=== PATIENT | male | born 1950 ===

== ENCOUNTER 2017-12-18 08:53 | Emergency (ER) | payer MEDICARE ==
[2017-12-18 09:06] VITALS: PULSE 54; O2SAT 98
--- NOTE | 2017-12-18 10:25 | RAD ---
PROCEDURE: Radiographs of the Right Shoulder HISTORY: r/o fx COMPARISON: No prior. FINDINGS: BONES: No fracture JOINTS: Acromioclavicular and glenohumeral joint arthrosis SOFT TISSUES: Normal. OTHER FINDINGS: Partially visualized are midline sternotomy wires IMPRESSION: No fracture or dislocation. Moderate shoulder arthrosis
[2017-12-18 11:02] VITALS: BP 125/76; RESP 18; TEMP 98
--- NOTE | 2017-12-18 12:31 | C.PDOC ---
History Of Present Illness 67 year old male presents to the ED for evaluation of right shoulder pain which began after he tripped and fell yesterday. Patient denies symptoms prior to the fall as well as head injury, LOC, extremity numbness/weakness, and any other complaints at this time. Chief Complaint (Nursing): Upper Extremity Problem/Injury History Per: Patient History/Exam Limitations: no limitations Onset/Duration Of Symptoms: Hrs Current Symptoms Are (Timing): Still Present Quality: "Pain" Additional History Per: Patient Past Medical History Reviewed: Historical Data, Nursing Documentation, Vital Signs Vital Signs: Last Vital Signs Temp 98.0 F 12/18/17 10:59 Pulse 54 L 12/18/17 10:59 Resp 18 12/18/17 10:59 BP 125/76 12/18/17 10:59 Pulse Ox 98 12/18/17 12:36 - Medical History PMH: HTN Surgical History: No Surg Hx Family History: States: Unknown Family Hx - Social History Hx Alcohol Use: Yes Hx Substance Use: No - Immunization History Hx Tetanus Toxoid Vaccination: No Hx Influenza Vaccination: Yes Hx Pneumococcal Vaccination: No Review Of Systems Musculoskeletal: Positive for: Shoulder Pain (right) Neurological: Negative for: Weakness, Numbness, Other (head injury, LOC ) Physical Exam - Physical Exam Appears: Non-toxic, No Acute Distress Skin: Normal Color, Warm, Dry Head: Atraumatic, Normacephalic Eye(s): bilateral: Normal Inspection Oral Mucosa: Moist Neck: Supple Chest: Symmetrical, No Deformity, No Tenderness Cardiovascular: Rhythm Regular, No Murmur Respiratory: Normal Breath Sounds, No Rales, No Rhonchi, No Wheezing Extremity: Normal ROM, No Tenderness, Capillary Refill (less than 2 seconds ), No Deformity, No Swelling Neurological/Psych: Oriented x3, Normal Speech, Normal Cognition, Normal Sensation Gait: Steady ED Course And Treatment O2 Sat by Pulse Oximetry: 98 (on RA) Pulse Ox Interpretation: Normal - Other Rad Right Shoulder XR X-Ray: Interpreted by Me, Viewed By Me, Read By Radiologist Interpretation: PROCEDURE: Radiographs of the Right Shoulder. HISTORY: r/o fx. COMPARISON: No prior. FINDINGS: BONES: No fracture. JOINTS: Acromioclavicular and glenohumeral joint arthrosis. SOFT TISSUES: Normal. OTHER FINDINGS: Partially visualized are midline sternotomy wires. IMPRESSION : No fracture or dislocation. Moderate shoulder arthrosis Medical Decision Making Medical Decision Making: Progress: Right shoulder XR ordered and reviewed. On reassessment, patient is resting comfortably, showing no signs of distress and is stable for discharge. Patient is advised to follow up with his PMD within 2-3 days for further evaluation and/or return to the ED if symptoms persist or worsen. Disposition - Disposition Referrals: Richar Al, [Non-Staff] - Disposition: HOME/ ROUTINE Disposition Time: 09:50 Condition: GOOD Additional Instructions: Thank you for letting us take care of you today. The emergency medical care you received today was directed at your acute symptoms. If you were prescribed any medication, please fill it and take as directed. It may take several days for your symptoms to resolve. Return to the Emergency Department if your symptoms worsen, do not improve, or if you have any other problems. Please contact your doctor or call one of the physicians/clinics you have been referred to that are listed on the Patient Visit Information form that is included in your discharge packet. Bring any paperwork you were given at discharge with you along with any medications you are taking to your follow up visit. Our treatment cannot replace ongoing medical care by a primary care provider (PCP) outside of the emergency department. Thank you for allowing the [facility] team to be part of your care today. Please follow up with your doctor in 2-3 days for re-evaluation and further management. Prescriptions: Ibuprofen [Motrin] 600 mg PO Q6 PRN #20 tab PRN Reason: Pain, Moderate (4-7) Instructions: Shoulder Sprain (ED) Forms: [employer] (Fijian) - Clinical Impression Clinical Impression: Shoulder contusion - Scribe Statement The provider has reviewed the documentation as recorded by the Scribe (Britney Walters) Provider Attestation: All medical record entries made by the Scribe were at my direction and personally dictated by me. I have reviewed the chart and agree that the record accurately reflects my personal performance of the history, physical exam, medical decision making, and the department course for this patient. I have also personally directed, reviewed, and agree with the discharge instructions and disposition.
== END 2017-12-18 11:18 | disposition home or self-care (01) ==
LOC: C.ER 08:53
DX: S40.011A Contusion of right shoulder, initial encounter (principal); W01.0XXA Fall on same level from slipping, tripping and stumbling without subsequent striking against object, initial encounter

== ENCOUNTER 2018-01-22 08:08 | Day surgery (SDC) | payer MEDICARE ==
[2018-01-20 11:12] VITALS: BMI 34.7
[2018-01-22] MEDS ORDERED: Propofol 10 mg/ml Inj (20 ML) ONE (12:19)
[2018-01-22] MEDS ORDERED: Lactated Ringer's 1,000 ML IV ONE (12:22)
--- NOTE | 2018-01-22 12:30 | CP.SDSHP ---
Same Day Surgery H & P - History Proposed Procedure: colon Pre-Op Diagnosis: screen - Previous Medical/Surgical History Cardiac: Hypertension, ASHD/CAD - Allergies Allergies: Allergies No Known Allergies Allergy (Verified 01/20/18 11:10) - Physical Exam Vital Signs: Vital Signs 01/22/18 08:49 Temperature 99 F Pulse Rate 72 Respiratory 19 Rate Blood Pressure 122/74 O2 Sat by Pulse 97 Oximetry Mental Status: Alert & Oriented x3 Heart: WNL Lungs: WNL GI: WNL - {Optional Preform as Required} Abdomen: WNL - Impression Impression: screen Pt. Evaluated Today:Candidate for Anesthesia & Procedure: Yes - Date & Time Date: 01/22/18 Time: 12:15 Short Stay Discharge - Short Stay Discharge Admitting Diagnosis/Reason for Visit: ENCOUNTER FOR SCREENING FOR MALIGNANT NEOPLASM OF Disposition: HOME/ ROUTINE
[2018-01-22] MEDS ORDERED: Lidocaine Hydrochloride 5 ML INJ ONE (12:40)
[2018-01-22 13:14] VITALS: TEMP 97
[2018-01-22 13:46] VITALS: BP 136/60; PULSE 60; RESP 13; O2SAT 99
== END 2018-01-22 13:58 | disposition home or self-care (01) ==
LOC: C.ENDO 08:08
PROVIDERS: ATTEND Internal Medicine Gastroenterology
DX: Z12.11 Encounter for screening for malignant neoplasm of colon (principal); D12.4 Benign neoplasm of descending colon; D12.2 Benign neoplasm of ascending colon; I10 Essential (primary) hypertension; I25.10 Atherosclerotic heart disease of native coronary artery without angina pectoris; K57.90 Diverticulosis of intestine, part unspecified, without perforation or abscess without bleeding
CPT/HCPCS: 45380; 45385; 88305; J2704; J7120